=== PATIENT | male | born 1955 | race African-American/Black ===

== ENCOUNTER 2021-07-29 09:30 | Inpatient (IN) | payer OTHER, MEDICAID ==
[~2021-07-29] VITALS: Ht 180.3 cm; Wt 72.6 kg
[2021-07-29] MEDS ORDERED: NS 1000 ML IV.SOLN IV ONE (11:51)
[2021-07-29] MEDS ORDERED: NS IRRIG SOLN 1000 ML IR ONE (11:51)
[2021-07-29] MEDS ORDERED: MEPIVACAINE PF 1% 10 MG/ML VIAL INJ ONE (11:51)
[2021-07-29] MEDS ORDERED: MEPERIDINE HCL/PF 25 MG/ML DISP.SYRIN ONE (11:52)
[2021-07-29] MEDS: MIDAZOLAM HCL 2 MG/2 ML VIAL (VERSED) ONE ×2 (12:44→12:48)
[2021-07-29 15:24] VITALS: BP_SYST 138
== END 2021-07-29 14:45 | disposition home or self-care (01) | DRG 159 ==
LOC: SMU 09:30 → EDSTATUS 11:15
PROVIDERS: ADMIT Dentist General Practice; ATTEND Dentist General Practice
PROC: 0CRXXJ1 Replacement of Lower Tooth, Multiple, with Synthetic Substitute, External Approach (ICD-10-PCS; 2021-07-29)
PROC: 0CDXXZ1 Extraction of Lower Tooth, Multiple, External Approach (ICD-10-PCS; principal; 2021-07-29 11:15)
DX: K08.89 Other specified disorders of teeth and supporting structures (principal); M27.2 Inflammatory conditions of jaws; Z20.822 Contact with and (suspected) exposure to COVID-19
CPT/HCPCS: 36415; 70140; J2175; J3465; J7030